=== PATIENT | female | born 1970 | race Caucasian/White ===

== ENCOUNTER 2018-09-15 02:06 | Inpatient (IN) | payer BC ==
[~2018-09-15] VITALS: Ht 177.8 cm; Wt 170.5 kg
[~2018-09-15 02:06] MED LIST: ATIVAN 0.50.5 MG/TAB PO; CELEXA 20MG20 MG/TAB PO; NAPROSYN375 MG PO; NO HOME MEDICATIONS; XANAX .25M0.25 MG/TA PO; [UNRECOGNIZED DRUG - OTHER]; [UNRECOGNIZED DRUG - OTHER]
[2018-09-15 02:50] LABS: BASO % 0.2 % (0.0-2.0); EOS # 0.1 (0.0-0.7); EOS % 0.6 % (0-4.0); GRAN # 8.4 (1.4-6.5); GRAN % 82.9 % (42.2-75.2); HEMATOCRIT 42.8 % (37.0-47.0); HEMOGLOBIN 14.4 g/dl (12.5-16.0); LYMPH # 1.1 (1.2-3.4); LYMPH % 11.1 % (20.0-51.0); MEAN CELL VOLUME 91 fl (80.0-100.0); MEAN CORPUSCULAR HEMOGLOBIN 31 pg (27.0-31.0); MEAN CORPUSCULAR HGB CONC 34 g/dl (33.0-37.0); MEAN PLATELET VOLUME 9.6 fl (7.4-10.4); MONO # 0.5 (0.1-0.6); PLATELET COUNT 284 K/mm3 (130-400); RED BLOOD COUNT 4.72 M/mm3 (4.10-5.30); REDCELL DISTRIBUTION WIDTH-CV 12.9 % (11.5-14.5)
[2018-09-15 03:04] LABS: ALANINE AMINOTRANSFERASE 26 U/L (9-52); ALBUMIN 4.4 gm/dL (3.5-5.0); ALKALINE PHOSPHATASE 103 U/L (50-136); ANION GAP 11 mmol/L (7-16); AST,SGOT 20 U/L (15-37); BILIRUBIN,TOTAL 0.9 mg/dL (0.0-1.0); BLOOD UREA NITROGEN 20 mg/dL (7-17); CALCIUM 10.7 mg/dL (8.4-10.2); CARBON DIOXIDE 24 mmol/L (22-30); CHLORIDE 104 mmol/L (98-107); CREATININE, serum 0.88 mg/dL (0.52-1.25); GLUCOSE 138 mg/dL (74-106); LIPASE 104 U/L (23-300); POTASSIUM 3.9 mmol/L (3.4-5.0); SODIUM 140 mmol/L (137-145); TOTAL PROTEIN 8.3 gm/dL (6.4-8.2)
[2018-09-15 03:16] LABS: TROPONIN-I < 0.012 ng/mL (0.000-0.034)
--- NOTE | 2018-09-15 11:00 | NUR ---
Pt arrives on unit via stretcher from EGD procedure. Admission assessment completed. VSS. Pt oriented to room and POC. Pt states increase pain in the upper abdomen region. Dr. Pearson notified by this RN for antacid order. Orders for protonix 40mg daily and tums 1,000mg PRN given.
[2018-09-15 11:44] VITALS: BP 121/62; PULSE 59; TEMP 98
--- NOTE | 2018-09-15 13:18 | NUR ---
RN at bedside. Pt dangled to side of bed with high anxiety and shaking legs. States increase of pain since 1100. Dr. Pearson notified. Orders for [place] 5mg every 4-6 hours prn.
[2018-09-15 13:19] VITALS: BP 130/77; PULSE 69
--- NOTE | 2018-09-15 13:45 | NUR ---
Warm pack given to pt. Applied to abdomen. 1400-Pt back resting in bed. Reports feeling slightly more comfortable.
[2018-09-15 17:30] VITALS: BP 114/60; PULSE 68; TEMP 98.4
[2018-09-15 20:30] VITALS: BP 114/50; PULSE 78; TEMP 97.7
--- NOTE | 2018-09-15 21:00 | NUR ---
2100 PT UP AND VOIDED VERY CONCENTRATED URINE. 200CC IN MEASURING HAT AND TOILET NOTED TO BE VERY YELLOW WITH PT MISSING THE COLLECTION HAT.
[2018-09-16] VITALS (15 sets, daily range): BP systolic 100–148; BP diastolic 57–88; PULSE 67–102; TEMP 98–98.8
[2018-09-16 06:39] LABS: HEMATOCRIT 37.5 % (37.0-47.0); MEAN CELL VOLUME 94 fl (80.0-100.0); MEAN CORPUSCULAR HEMOGLOBIN 30 pg (27.0-31.0); MEAN CORPUSCULAR HGB CONC 33 g/dl (33.0-37.0); MEAN PLATELET VOLUME 9.6 fl (7.4-10.4); PLATELET COUNT 230 K/mm3 (130-400); RED BLOOD COUNT 4.01 M/mm3 (4.10-5.30); REDCELL DISTRIBUTION WIDTH-CV 13.2 % (11.5-14.5)
[2018-09-16 06:45] LABS: HEMOGLOBIN 12.2 g/dl (12.5-16.0)
[2018-09-16 06:55] LABS: ALBUMIN 3.4 gm/dL (3.5-5.0); BILIRUBIN,TOTAL 0.9 mg/dL (0.0-1.0); CALCIUM 8.7 mg/dL (8.4-10.2); CREATININE, serum 0.88 mg/dL (0.52-1.25); POTASSIUM 3.6 mmol/L (3.4-5.0); TOTAL PROTEIN 6.7 gm/dL (6.4-8.2)
--- NOTE | 2018-09-16 10:06 | NUR ---
Initial visit; Patient thanked [employer] for offering prayer and encouragement prior to her surgical procedure.
--- NOTE | 2018-09-16 12:10 | NUR ---
1200: Report from Omid Escobar RN. 1210: Patient calls out and needs to void. This nurse to room. Patient resting in bed and states she is starting to have pain in her abdomen where incision poke sites are located. Patient assisted to side of bed. Patient given [place] 1 tablet per orders for pain. patient sitting up eating cracker. Patient assisted to bathroom and able to void 200ml james color urine. Patient assisted back to bed. SCD's on, Oxygen on at 6L and Sats 93%. Patient plans to rest. Call light in reach.
--- NOTE | 2018-09-16 12:30 | NUR ---
Sats 97% on 6L, decreased to 4L
--- NOTE | 2018-09-16 17:00 | NUR ---
OXYGEN SATS 91% ON ROOM AIR. 1700: RT in room and incentive spirometer explained and patient performs correctly.
[2018-09-17 00:45] VITALS: BP 111/53; PULSE 79; TEMP 98.1
[2018-09-17 04:51] VITALS: BP 104/59; PULSE 67
[2018-09-17 08:10] VITALS: BP 114/64; PULSE 72
--- NOTE | 2018-09-17 10:57 | NUR ---
DISCHARGE EDUCATION REVIEWED WITH PATIENT WHO STATES UNDERSTANGING, INT REMOVED. PATIENT ESCORTED OFF UNIT WITH SPOUSE IN [facility]
== END 2018-09-17 11:05 | disposition home or self-care (01) | DRG 418 ==
LOC: COL.ER 02:06 → OB 05:33
PROVIDERS: Emergency Medicine; ADMIT Surgery
PROC: 0DJ08ZZ Inspection of Upper Intestinal Tract, Via Natural or Artificial Opening Endoscopic (ICD-10-PCS; 2018-09-15)
PROC: 8E0W4CZ Robotic Assisted Procedure of Trunk Region, Percutaneous Endoscopic Approach (ICD-10-PCS; 2018-09-16)
PROC: 0FT44ZZ Resection of Gallbladder, Percutaneous Endoscopic Approach (ICD-10-PCS; principal; 2018-09-16 09:00)
DX: K80.00 Calculus of gallbladder with acute cholecystitis without obstruction (principal); Z68.43 Body mass index [BMI] 50.0-59.9, adult; E66.01 Morbid (severe) obesity due to excess calories; F41.9 Anxiety disorder, unspecified; F32.9 Major depressive disorder, single episode, unspecified
CPT/HCPCS: G0378; J0690; J1100; J1170; J1885; J2060; J2270; J2405; J2704; J2710; J3010; J7030; J7120; Q9967

== ENCOUNTER → 2019-05-16 | Outpatient (CLI) | payer BC | LOC: MC.RAD 12:39 | DX: Z12.31 Encounter for screening mammogram for malignant neoplasm of breast (principal); N63.10 Unspecified lump in the right breast, unspecified quadrant ==

== ENCOUNTER → 2019-05-18 | Outpatient (CLI) | payer BC | LOC: MC.RAD 12:52 | DX: N60.01 Solitary cyst of right breast (principal) ==

== ENCOUNTER → 2019-05-23 | Outpatient (CLI) | payer BC | LOC: MC.RAD 08:00 | DX: N60.01 Solitary cyst of right breast (principal) ==